=== PATIENT | female | born 1990 | race Caucasian/White ===

== ENCOUNTER → 2020-10-29 05:45 | Observation (INO) ==
[2020-10-29 02:48] LABS: Bilirubin,Urine Negative (Negative); Blood,Urine Negative (Negative); Clarity,Urine Clear (Clear); Color,Urine Light-Yellow (Yellow); Glucose,Urine (UA) Normal (Normal); Ketones,Urine Negative (Negative); Leukocyte Esterase,Urine Negative (Negative); Nitrite,Urine Negative (Negative); PH,Urine 6.5 pH Units (5.0-8.0); Protein,Urine Trace mg/dL (Neg-Trace); Specific Gravity,Urine 1.027 (1.010-1.025); Urobilinogen,Urine Normal (Normal)
[2020-10-29 04:28] LABS: Protein/Creatinine Ratio,Urine 0.14 mg/mg (0.00-0.20)
[2020-10-29 04:37] LABS: Basophils # 0.1 K/mcL (0.0-0.2); Basophils % 0.4 %; Eosinophils # 0.1 K/mcL (0.0-0.6); Eosinophils % 0.5 %; Hematocrit 36.4 % (35.3-44.9); Immature Granulocytes % 0.2 % (0-4); Lymphocytes # 1.8 K/mcL (0.6-4.6); Lymphocytes % 13.3 %; Mean Corpuscular Hemoglobin 29.5 pg (28.0-33.3); Mean Corpuscular Volume 89.4 fL (83.0-100.0); Mean Platelet Volume 9.9 fL (9.4-12.4); Monocytes # 0.8 K/mcL (0.0-1.3); Monocytes % 6.2 %; Neutrophils # 10.6 K/mcL (1.6-8.9); Platelet Count 266 K/mcL (140-400); Red Blood Count 4.07 M/mcL (3.82-4.97); Red Cell Distribution Width 12.4 % (11.5-14.5); Segmented Neutrophils % 79.4 %; White Blood Count 13.4 K/mcL (4.3-11.1)
[2020-10-29 05:02] LABS: Alanine Aminotransferase 13 Units/L (7-52); Albumin 3.8 g/dL (3.5-5.7); Albumin/Globulin Ratio 1.4 (1.1-2.2); Alkaline Phosphatase 49 Units/L (34-104); Aspartate Amino Transferase 13 Units/L (13-39); BUN/Creatinine Ratio 22 (6-26); Bilirubin,Direct 0.1 mg/dL (0.0-0.2); Bilirubin,Indirect 0.2 mg/dL (0.0-1.0); Bilirubin,Total 0.3 mg/dL (0.3-1.0); Blood Urea Nitrogen 10 mg/dL (6-20); Globulin 2.8 g/dL (2.4-3.5); Lactate Dehydrogenase 113 Units/L (140-271); Total Protein 6.6 g/dL (6.4-8.9); Uric Acid 3.4 mg/dL (2.3-7.6); eGFR For African Americans > 60 (> 60); eGFR For Non-African Americans > 60 (> 60)
[2020-10-29 05:44] LABS: Amylase 34 Units/L (29-103); Lipase 14 Units/L (11-82)
[~2020-10-29 05:45] MED LIST: Famotidine 20 MG TABLET PO STA
== END | disposition home or self-care (01) ==
LOC: 1NENULAB
PROVIDERS: ADMIT Advanced Practice Midwife; ATTEND Advanced Practice Midwife

== ENCOUNTER 2021-01-10 09:13 | Inpatient (IN) ==
[2021-01-10] MEDS ORDERED: Famotidine 20 MG/2 ML VIAL IVP ONE (09:21)
[2021-01-10] MEDS ORDERED: Ringers Solution, Lactated 1,000 ML IVC ONE (09:21)
[2021-01-10] MEDS ORDERED: Metoclopramide 10 MG/2 ML VIAL IVP ONE (09:21)
[2021-01-10] MEDS ORDERED: CeFAZolin 2,000 MG/120 ML BAG IVPB ONE (09:21)
[2021-01-10] MEDS ORDERED: Oxytocin 20 units/ LR 1000 mL 20 UNIT/1,000 ML BAG IVC ONE ×3 (09:21→15:54)
[2021-01-10] MEDS ORDERED: Ondansetron 4 MG/2 ML VIAL IVP PRN ×3 (09:28→17:42)
[2021-01-10] MEDS ORDERED: Naloxone 0.4 MG/ML INJ IVP PRN ×2 (09:28→17:42)
[2021-01-10 10:20] LABS: Basophils % 0.5 %; Eosinophils % 0.5 %; Hemoglobin 12.5 g/dL (11.5-15.4); Immature Granulocytes % 0.4 % (0-4); Lymphocytes # 1.4 K/mcL (0.6-4.6); Lymphocytes % 16.4 %; Mean Corpuscular HGB Conc 32.9 g/dL (31.6-35.5); Mean Corpuscular Hemoglobin 28.4 pg (28.0-33.3); Mean Corpuscular Volume 86.4 fL (83.0-100.0); Mean Platelet Volume 11.2 fL (9.4-12.4); Monocytes # 0.7 K/mcL (0.0-1.3); Monocytes % 8.6 %; Neutrophils # 6.2 K/mcL (1.6-8.9); Platelet Count 244 K/mcL (140-400); Red Cell Distribution Width 12.3 % (11.5-14.5); Segmented Neutrophils % 73.6 %; White Blood Count 8.4 K/mcL (4.3-11.1)
[2021-01-10] MEDS ORDERED: Ringers Solution, Lactated 1,000 ML ONE ×2 (10:51→13:55)
[2021-01-10 10:58] LABS: Influenza A PCR Negative (Negative); Influenza B PCR Negative (Negative); Resp. Syncytial Virus PCR Negative (Negative)
[2021-01-10] MEDS ORDERED: *HR* Morphine Sulfate/PF 10 MG/10 ML AMPUL ONE (11:13)
[2021-01-10] MEDS ORDERED: EPHEDrine 50 MG/ML VIAL ONE (11:13)
[2021-01-10] MEDS ORDERED: *HR* FentaNYL (PF) 100 MCG/2 ML VIAL ONE (11:13)
[2021-01-10] MEDS ORDERED: Ondansetron 4 MG/2 ML VIAL ONE (11:16)
[2021-01-10] MEDS ORDERED: Ketorolac 30 MG/ML VIAL ONE (11:16)
[2021-01-10] MEDS ORDERED: Acetaminophen IV 1,000 MG/100 ML BAG IVPB ONE (11:17)
[2021-01-10 11:30] LABS: SARS-CoV-2 by PCR (In House) Negative (Negative)
[2021-01-10] MEDS ORDERED: *HR* HYDROmorphone PF 0.5 MG/0.5 ML SYRINGE IVP PRN (12:05)
[2021-01-10] MEDS ORDERED: *HR* OxyCODONE Immed Rel 5 MG TABLET PO PRN (12:05)
[2021-01-10 12:41] LABS: Amphetamine Screen,Urine Negative ng/mL (Cutoff=1000); Barbiturate Screen,Urine Negative ng/mL (Cutoff=200); Benzodiazepines Screen,Urine Negative ng/mL (Cutoff=200); Cannabinoid Screen,Urine Negative ng/mL (Cutoff = 50); Cocaine Screen,Urine Negative ng/mL (Cutoff= 300); Opiate Screen,Urine Negative ng/mL (Cutoff=300); Phencyclidine Screen,Urine Negative ng/mL (Cutoff=25)
[2021-01-10] MEDS ORDERED: Ringers Solution, Lactated 1,000 ML IVC SCH (17:42)
[2021-01-10] MEDS ORDERED: Oxytocin 20 units/ LR 1000 mL 20 UNIT/1,000 ML BAG IVC SCH ×2 (17:42)
[2021-01-10] MEDS ORDERED: Metoclopramide 10 MG/2 ML VIAL IVP PRN (17:42)
[2021-01-10] MEDS ORDERED: Rho Immune Globulin 1,500 UNIT SYRINGE IM ONE (17:42)
[2021-01-10] MEDS: Acetaminophen 325 MG TABLET PO SCH (18:59)
[2021-01-10] MEDS: Ibuprofen 600 MG TABLET PO SCH (18:59)
[2021-01-10] MEDS: *HR* OxyCODONE Immed Rel 5 MG TABLET PO PRN (23:28)
[2021-01-11] MEDS: Ibuprofen 600 MG TABLET PO SCH ×4 (02:08→20:14)
[2021-01-11] MEDS: Acetaminophen 325 MG TABLET PO SCH ×4 (05:01→23:29)
[2021-01-11 05:18] LABS: Basophils % 0.2 %; Eosinophils % 0.1 %; Hematocrit 31.5 % (35.3-44.9); Immature Granulocytes % 0.3 % (0-4); Lymphocytes # 1.5 K/mcL (0.6-4.6); Lymphocytes % 9.8 %; Mean Corpuscular Hemoglobin 28.9 pg (28.0-33.3); Mean Corpuscular Volume 85.1 fL (83.0-100.0); Mean Platelet Volume 11.2 fL (9.4-12.4); Monocytes # 1.3 K/mcL (0.0-1.3); Monocytes % 8.4 %; Platelet Count 211 K/mcL (140-400); Red Cell Distribution Width 12.1 % (11.5-14.5); Segmented Neutrophils % 81.2 %
[2021-01-11 05:31] LABS: Hemoglobin 10.7 g/dL (11.5-15.4); Neutrophils # 12.2 K/mcL (1.6-8.9)
[2021-01-11] MEDS: *HR* OxyCODONE Immed Rel 5 MG TABLET PO PRN ×5 (08:15→23:30)
[2021-01-11] MEDS: Prenatal Vit/FA 1 EACH TABLET PO SCH (08:15)
[2021-01-11] MEDS: Simethicone 80 MG TAB.CHEW PO PRN (20:13)
[2021-01-12] MEDS: Ibuprofen 600 MG TABLET PO SCH ×4 (02:07→20:34)
[2021-01-12] MEDS: Acetaminophen 325 MG TABLET PO SCH ×3 (04:48→17:49)
[2021-01-12] MEDS: *HR* OxyCODONE Immed Rel 5 MG TABLET PO PRN ×4 (04:49→17:50)
[2021-01-12] MEDS: Simethicone 80 MG TAB.CHEW PO PRN ×2 (08:12→20:35)
[2021-01-12] MEDS: Prenatal Vit/FA 1 EACH TABLET PO SCH (08:13)
[2021-01-13] MEDS: Acetaminophen 325 MG TABLET PO PRN ×2 (00:18→05:56)
[2021-01-13] MEDS: *HR* OxyCODONE Immed Rel 5 MG TABLET PO PRN ×3 (00:21→10:56)
[2021-01-13] MEDS: Ibuprofen 600 MG TABLET PO SCH ×2 (02:44→08:57)
[2021-01-13] MEDS: Prenatal Vit/FA 1 EACH TABLET PO SCH (07:47)
[2021-01-13 08:27] VITALS: TEMP 98.4; O2SAT 97
[2021-01-13 10:08] VITALS: PULSE 86
[2021-01-13 11:14] VITALS: BP 138/93
== END 2021-01-13 12:25 | disposition home or self-care (01) | DRG 788 ==
LOC: 1NENULAB 09:13 → 1NENUOBS 17:40
PROVIDERS: ADMIT Obstetrics & Gynecology; ATTEND Obstetrics & Gynecology